=== PATIENT | male | born 1945 | race Caucasian/White ===

== ENCOUNTER 2019-12-25 09:19 | Outpatient (CLI) | payer MEDICARE, OTHER, SELFPAY ==
--- NOTE | ~2019-12-25 | XR_ITS ---
XR abdomen/kub 1V 12/25/2019 09:43 Indication: Renal stones Procedure: KUB Comparison: 10/16/2018 Findings: Bowel gas pattern is nonobstructive. Moderate colonic fecal loading. There is punctate bila teral renal stones. Mild lumbar spondylosis. No acute osseous abnormality. Mild osteoarthritis of the hips. Impression: 1: Bilateral nephrolithiasis. Reviewed, dictated and finalized at location B. Impression: 1: Bilateral nephrolithiasis.
== END 2019-12-25 09:20 | disposition home or self-care (01) ==
PROVIDERS: Visit Provider Urology
DX: N20.0 Calculus of kidney (principal)
CPT/HCPCS: 74018

== ENCOUNTER 2020-12-29 10:43 | Outpatient (CLI) | payer MEDICARE, OTHER, SELFPAY ==
--- NOTE | ~2020-12-29 | XR_ITS ---
EXAMINATION: XR abdomen/kub 1V EXAM DATE: 12/29/2020 11:16 INDICATION: Calcium Kidney Stone, F/U . TECHNIQUE: Frontal projection(s) of the abdomen for interpretation. Comparison is made to prior exami nation from 12/25/2019. FINDINGS: Approximately 4 mm calcific density projecting over right kidney which could be a stone. Th is finding has been indicated, marked on the examination for review, clinical correlation. No other s uspicious calcifications. Nonobstructive bowel gas pattern. There is no organomegaly. Mild to moderat e bony degenerative changes. IMPRESSION: Probable right nephrolithiasis. Reviewed, dictated and finalized at location B.
== END 2020-12-29 10:44 | disposition home or self-care (01) ==
PROVIDERS: PCP Urology; Visit Provider Urology
DX: N20.0 Calculus of kidney (principal)
CPT/HCPCS: 74018

== ENCOUNTER 2021-12-29 10:08 | Outpatient (CLI) | payer MEDICARE, OTHER, SELFPAY ==
--- NOTE | ~2021-12-29 | XR_ITS ---
XR abdomen/kub 1V 12/29/2021 10:46 INDICATION: Flank pain TECHNIQUE: KUB COMPARISON: None FINDINGS: There is a stable small stone in the upper pole of the right kidney. Bowel gas pattern is n onobstructive. Moderate colonic fecal loading. There are pelvic phleboliths unchanged. No acute osseo us abnormality. IMPRESSION: 1.: Stable small upper pole stone in the right kidney. Reviewed, dictated and finalized at location B.
== END 2021-12-29 10:09 | disposition home or self-care (01) ==
PROVIDERS: PCP Urology; Visit Provider Nurse Practitioner Adult Health
DX: N20.0 Calculus of kidney (principal)
CPT/HCPCS: 74018